=== PATIENT | female | born 1990 | race Hispanic/Latino ===

== ENCOUNTER 2016-09-02 19:31 | Emergency (ER) | payer BC, MEDICAID, OTHER ==
[2016-09-02 19:31] VITALS: BMI 27.4
[2016-09-02 19:43] VITALS: BP 116/78; PULSE 85; RESP 16; TEMP 98.7; O2SAT 99
--- NOTE | 2016-09-02 20:03 | ED PDOC ---
Arrival/HPI - General Chief Complaint: Back Pain Time Seen by Provider: 09/02/16 19:52 Historian: Patient - History of Present Illness Narrative History of Present Illness (Text): 09/02/16 19:59 26 year old female with a past medical history that includes asthma presents to the emergency department with lower back pain for the past month. Patient states she has chronic back pain but states the pain has been radiating to the abdomen so she came for further evaluation. Patient states her PMD is away on vacation. She states the pain is worse when bending backwards. Patient reports she took Tylenol with no improvement. Patient also mentions a "pulling" sensation in her pelvic region bilaterally while urinating. Denies urinary/ bowel incontinence, fever, or other symptoms. PMD: Dr. Maryam Richards Time/Duration: > month Symptom Onset: Gradual Symptom Course: Unchanged Modifying Factors (Text): Tylenol with no improvement Associated Symptoms (Text): None Past Medical History - Provider Review Nursing Documentation Reviewed: Yes - Cardiac Hx Cardiac Disorders: No - Pulmonary Hx Asthma: Yes - Neurological Hx Neurological Disorder: No - HEENT Hx HEENT Disorder: No - Renal Hx Renal Disorder: No - Endocrine/Metabolic Hx Endocrine Disorders: No - Hematological/Oncological Hx Blood Disorders: No - Integumentary Hx Dermatological Disorder: No - Musculoskeletal/Rheumatological Hx Back Pain: Yes - Gastrointestinal Hx Gastrointestinal Disorders: No - Genitourinary/Gynecological Hx Genitourinary Disorders: (, approx 8 weeks gestation) - Psychiatric Hx Anxiety: Yes Hx Substance Use: No - Anesthesia Hx Anesthesia: No Hx Anesthesia Reactions: No Hx Malignant Hyperthermia: No Family/Social History - Physician Review Nursing Documentation Reviewed: Yes Family/Social History: Unknown Family HX Smoking Status: Never Smoked Hx Alcohol Use: No Hx Substance Use: No Allergies/Home Meds Allergies/Adverse Reactions: Allergies seasonal, cats, dogs Allergy (Uncoded 09/02/16 19:38) ITCHING Home Medications: Home Meds Medication Instructions Recorded Confirmed Budesonide/Formoterol Fumarate 2 puff NEB BID 09/02/16 09/02/16 [Symbicort 160-4.5 Mcg Inhaler] Review of Systems - Physician Review All systems were reviewed & negative as marked: Yes - Review of Systems Constitutional: absent: Fevers Gastrointestinal: absent: Stool Changes, Diarrhea Genitourinary Female: absent: Hematuria Musculoskeletal: Back Pain Physical Exam Vital Signs Reviewed: Yes Vital Signs Temp Pulse Resp BP Pulse Ox 09/02/16 19:39 98.7 F 85 16 116/78 99 Temperature: Afebrile Blood Pressure: Normal Pulse: Regular Respiratory Rate: Normal Appearance: Positive for: Well-Appearing, Non-Toxic, Comfortable Pain Distress: None Mental Status: Positive for: Alert and Oriented X 3 - Systems Exam Head: Present: Atraumatic, Normocephalic Pupils: Present: PERRL Extroacular Muscles: Present: EOMI Conjunctiva: Present: Normal Mouth: Present: Moist Mucous Membranes Neck: Present: Normal Range of Motion Respiratory/Chest: Present: Clear to Auscultation, Good Air Exchange. No: Respiratory Distress, Accessory Muscle Use Cardiovascular: Present: Regular Rate and Rhythm, Normal S1, S2. No: Murmurs Abdomen: Present: Normal Bowel Sounds. No: Tenderness, Distention, Peritoneal Signs Back: Present: Paraspinal Tenderness (Right lumbar tenderness). No: CVA Tenderness, Midline Tenderness, Pain with Leg Raise Upper Extremity: Present: Normal Inspection. No: Cyanosis, Edema Lower Extremity: Present: Normal Inspection, Normal ROM. No: Edema Neurological: Present: GCS=15, CN II-XII Intact, Speech Normal Skin: Present: Warm, Dry, Normal Color. No: Rashes Psychiatric: Present: Alert, Oriented x 3, Normal Insight, Normal Concentration Medical Decision Making ED Course and Treatment: Impression: 26 year old female with a past medical history that includes asthma presents to the emergency department with lower back pain for the past month. Differential Diagnosis included but are not limited to: Sciatica vs muscle strain Plan: -- Toradol -- Urinalysis -- Reassess and disposition Prior Visits: Notes and results from previous visits were reviewed. Patient last seen in ED on 08/13/16 for chronic back pain and discharged home. Progress Notes: Patient feels better and is ready to go home. Xray was ordered because she's had this pain for some time and has not been able to get imaging as an outpatient. I offered her some muscle relaxants but she's ok with just taking tylenol and or motrin at home. - Lab Interpretations Lab Results: Lab Results 09/02/16 20:10: Urine Color Straw, Urine Appearance Cloudy, Urine pH 8.0, Ur Specific [place] 1.015, Urine Protein Negative, Urine Glucose (UA) Negative, Urine Ketones Negative, Urine Blood Negative, Urine Nitrate Negative, Urine Bilirubin Negative, Urine Urobilinogen 0.2, Ur Leukocyte Esterase Small H, Urine RBC 0 - 2, Urine WBC 0 - 2, Ur Epithelial Cells 0 - 2, Amorphous Sediment Many, Urine Bacteria Trace - RAD Interpretation Radiology Orders: 09/02/16 20:08 LS SPINE WITH OBL > 18 YRS OLD [RAD] Stat - Medication Orders Current Medication Orders: Discontinued Medications Ketorolac Tromethamine (Toradol) 60 mg IM STAT STA Stop: 09/02/16 19:59 Last Admin: 09/02/16 20:21 Dose: 60 MG IM Administration Charges Document 09/02/16 20:21 EQ (Rec: 09/02/16 20:22 EQ [id number] Injection Site MAR Injection Site Left Gluteus Medius Charges for Administration # of IM Administrations 1 - Scribe Statement The provider has reviewed the documentation as recorded by the Rae Ramesh Provider Scribe Attestation: All medical record entries made by the Michaeliblori were at my direction and personally dictated by me. I have reviewed the chart and agree that the record accurately reflects my personal performance of the history, physical exam, medical decision making, and the department course for this patient. I have also personally directed, reviewed, and agree with the discharge instructions and disposition. Disposition/Present on Arrival - Present on Arrival Any Indicators Present on Arrival: No History of DVT/PE: No History of Uncontrolled Diabetes: No Urinary Catheter: No History of Decub. Ulcer: No History Surgical Site Infection Following: None - Disposition Have Diagnosis and Disposition been Completed?: Yes Diagnosis: Chronic back pain Disposition: HOME/ ROUTINE Disposition Time: 23:00 Patient Plan: Discharge Patient Problems: Current Active Problems Problem Status Diagnosed Chronic back pain Acute Condition: IMPROVED Discharge Instructions (ExitCare): Back Pain (ED) Additional Instructions: Ms Gonzalez, thank you for letting us take care of you today. Your provider was Dr. Morris. You were treated for Back Strain. The emergency medical care you received today was directed at your acute symptoms. If you were prescribed any medication, please fill it and take as directed. It may take several days for your symptoms to resolve. Return to the Emergency Department if your symptoms worsen, do not improve, or if you have any other problems. Please contact your doctor or call one of the physicians/clinics you have been referred to that are listed on the Patient Visit Information form that is included in your discharge packet. Bring any paperwork you were given at discharge with you along with any medications you are taking to your follow up visit. Our treatment cannot replace ongoing medical care by a primary care provider (PCP) outside of the emergency department. Thank you for allowing the [facility] team to be part of your care today. If you had an X-Ray or CT scan: A Radiologist will review the ED reading if any change in treatment is needed we will contact you. If you had a blood, urine, or wound culture: It will take several days for the results, if any change in treatment is needed we will contact you. If you had an STI test: It will take 48 hours for the results. Please call after 1 week if you have not heard back. Referrals: Maryam Richards MD [Primary Care Provider] - Follow up with primary Forms: WORK NOTE
[2016-09-02 20:25] LABS: URINE BILIRUBIN NEGATIVE (NEGATIVE); URINE BLOOD NEGATIVE (NEGATIVE); URINE GLUCOSE (UA) NEGATIVE (NEGATIVE); URINE KETONE NEGATIVE (NEGATIVE); URINE LEUKOCYTE ESTERASE SMALL Leu/uL (NEGATIVE); URINE PROTEIN NEGATIVE mg/dL (<30 mg/dL); URINE UROBILINOGEN 0.2 E.U./dL (<1 E.U./dL)
[2016-09-02 20:28] LABS: URINE APPEARANCE CLOUDY (CLEAR); URINE COLOR STRAW (YELLOW)
[2016-09-02 20:36] LABS: URINE AMORPHOUS SEDIMENT MANY; URINE BACTERIA TRACE (NEG); URINE EPITHELIAL CELLS 0 - 2 /hpf (0-5); URINE RBC 0 - 2 /hpf (0-2); URINE WBC 0 - 2 /hpf (0-6)
--- NOTE | 2016-09-03 07:25 | RAD ---
PROCEDURE: Lumbar spine dated 09/02/2016 HISTORY: back pain COMPARISON: No prior. FINDINGS: BONES: Normal alignment. No listhesis. No fracture. DISC SPACES: Unremarkable. OTHER FINDINGS: Moderate amount of stool seen within the cecum ascending colon and rectum suggesting mild constipation IMPRESSION: Unremarkable radiographs of the lumbar spine.
== END 2016-09-02 22:00 | disposition home or self-care (01) ==
LOC: ED 19:31
DX: M54.9 Dorsalgia, unspecified (principal); G89.29 Other chronic pain
CPT/HCPCS: 72110; 81001; 87086; 96372; 99282; J1885